=== PATIENT | male | born 1935 | race Caucasian/White ===

== ENCOUNTER 2017-06-29 18:45 | Inpatient (IN) | payer OTHER, MEDICARE ==
[~2017-06-29] VITALS: Ht 167.6 cm; Wt 63.6 kg
--- NOTE | ~2017-06-29 | H ---
[facility] [place] [address] HISTORY AND PHYSICAL Name: MARLON SABA JR Room #: 419-P ADM IN M.R.#: [id number] Admission: 06/29/17 Attend Phys: Javier Persaud Discharge: Date of : 31 Report #: [id number] THIS REPORT FOR: //name// CC: Javier James DATE OF SERVICE: 06/29/2017 ATTENDING PHYSICIAN: Yogesh Bird M.D. PRIMARY CARE PHYSICIAN: Osvaldo James D.O. CHIEF COMPLAINT: Altered mental status. HISTORY OF PRESENT ILLNESS: The patient is an 82-year-old male who lives at a fdc outside of [place], [place]. Apparently, he recently had a UTI and had been on Macrobid since 06/24/2017. His daughter has not had noticed some recent changes in his behavior, where he was acting mean. Apparently, he has some underlying vascular dementia, but he is normally alert with minimal confusion. He has been having increasing weakness as well as some spells in which he goes into a blank stare and is unable to respond for a brief period of time, sometimes his speech has seemed garbled during these episodes. He does not have a history of seizures, it was reported that he had a fever up to 102 at the facility. He initially was evaluated at [facility] in [place] and it was decided that he should transfer to [facility] where he can see Neurology. The patient arrived in no acute distress. He is able to answer most questions, but he is mildly confused. He is pleasant and cooperative for the most part although he is refusing to have a straight catheterization to obtain another urine specimen. He is denying any headache or neck pain, denies chest pain or abdominal pain. He does have a history of strokes and TIAs and has been on Coumadin. PAST MEDICAL HISTORY: Chronic atrial fibrillation, carotid stenosis, hypertension, hypothyroidism, coronary artery disease with prior [place], CVA and TIAs, bladder cancer, and vascular dementia. PAST SURGICAL HISTORY: Bilateral carotid endarterectomy, left hip replacement, left ankle replacement, cardiac stent placement, bladder surgery x 2. ALLERGIES: SULFA, UNKNOWN REACTION AND CHRISTIANO INHIBITORS ANGIOEDEMA. HOME MEDICATIONS: Macrobid 100 mg p.o. daily, this was just started on 06/24/2017, Flomax 0.4 mg p.o. daily, Coumadin 3 mg on Tuesday, , Tuesday, Tuesday and Coumadin 4 mg Tuesday, Tuesday, Tuesday and lovastatin 10 mg at bedtime, metoprolol 12.5 mg b.i.d., Tylenol 650 mg p.o. p.r.n., calcium with vitamin D 1 tab daily, guaifenesin 100 mg daily, artificial tears, Protonix [address] [address] HISTORY AND PHYSICAL Name: MARLON SABA Room #: 419-P [facility] IN M.R.#: [id number] Admission: 06/29/17 Attend Phys: Javier Persaud Discharge: Date of : 31 Report #: [id number] 40 mg daily, levothyroxine 0.075 mg daily and multivitamin daily. SOCIAL HISTORY: According to old records, the patient is an ex-smoker, having quit smoking in 1989 after smoking 1 pack per day for 10-12 years, no history of alcohol or drug use. He actually lives with his at a fdc facility in the same room. At his baseline, he is nonambulatory and wheelchair bound. CODE STATUS: DNR. FAMILY HISTORY: Significant for strokes, diabetes, and cancer. REVIEW OF SYSTEMS: According to the fdc records, he is incontinent of urine regularly. No reports of any recent bleeding. The patient denies any diabetes. All other 12-point review of systems was reviewed with the patient, otherwise negative unless stated in the HPI. PHYSICAL EXAMINATION: GENERAL: The patient is an alert male in no acute distress. VITAL SIGNS: Temperature is are 36.9, heart rate 81, respirations 18, blood pressure 122/66, oxygen 96% on room air. HEENT: PERRLA. Sclerae is nonicteric. Oral mucosa is pink and moist. NECK: No JVD noted. CARDIAC: Heart rate is irregular, but no murmurs, rubs or gallops. RESPIRATORY: Breath sounds are clear bilaterally. No wheezing or rhonchi. Breathing is nonlabored. ABDOMEN: Soft, nontender, nondistended with positive bowel sounds. VASCULAR: Trace bilateral lower extremity edema. Pedal pulses are 2+. NEUROLOGIC: The patient is alert to self only. He thought he was in a motel, but he was able to state he was in [place]. He was unable to tell me the current hospital, current month or current year. He will follow commands. He is able to move all extremities equally. No focal neuro deficits. LABORATORY DATA AND DIAGNOSTICS: WBC 8.6, hemoglobin 12.9, platelets 220. Sodium 129, potassium 4.1, BUN 26, creatinine 0.9, glucose 103. INR 3.6. Bilirubin, AST and ALT are within normal limits. Alkaline phosphatase 205. CK levels 77. Lactate 1.8. Troponins negative. UA showed moderate blood, small leukocyte esterase, 6-14 WBCs, EKG shows atrial fibrillation, rate 56. Chest x-ray showed mild bronchitis versus some mild pulmonary vascular congestion. CT of the head showed no acute findings. There was sxzz-ol-plakbnjg cerebellar atrophy. There was some chronic small vessel ischemic disease changes and some bilateral maxillary and ethmoid sinus disease. ASSESSMENT AND PLAN: 1. Altered mental status. These episodes that are being described are concerning for possible seizures. He does not have a history of seizure disorder, but has had multiple strokes. He also has underlying atrial [facility] [address] [place] [address] HISTORY AND PHYSICAL Name: MARLON SABA Room #: 419-P [facility] IN ..#: [id number] Admission: 06/29/17 Attend Phys: Javier Persaud Discharge: Date of : 31 Report #: [id number] fibrillation and is already on anticoagulation. We will check an MRI of the brain in the morning as well as an EEG and to consult Neurology and this may also be due to underlying urinary tract infection. We will try to repeat urinalysis and in the meantime continue Rocephin. 2. Urinary tract infection. The patient is refusing to give us another urine specimen per the straight cath. His urinalysis from outlying facility may have been contaminated. We will continue with Rocephin daily and follow urine culture if we are able to obtain it. 3. Hypertension. Blood pressure is stable, continue home medications. 4. Chronic atrial fibrillation. The patient is currently rate controlled. We will continue with metoprolol. He is anticoagulated with Coumadin and INR is supratherapeutic at 3.6. Today's dose was held. We will repeat an INR in the morning and then resume Coumadin at dosing as previous. 5. Hypothyroidism. Continue Synthroid. 6. Hyponatremia. We will give some gentle normal saline and repeat labs in the morning. His BUN is mildly elevated. 7. Code status: The patient is a do not resuscitate. 8. Deep venous thrombosis prophylaxis. Add sequential compression devices. Continue with Coumadin. We will continue to follow the patient closely throughout the hospitalization and make changes based on clinical status. <ELECTRONICALLY SIGNED> By: ALBERT Zabala 06/30/17 [id number] ALBERT Zabala /nt
--- NOTE | ~2017-06-29 | EEG ---
[facility] [employer] [place] [address] ELECTROENCEPHALOGRAM Name: MARLON SABA JR Room #: 419-P [facility] IN M.R.#: [id number] Admission: 06/29/17 Attend Phys: Javier Brennan Discharge: 07/01/17 Date of : 31 Report #: [id number] THIS REPORT FOR: //name// CC: Javier Persaud Osvaldo James DATE OF SERVICE: 06/30/2017 The patient's EEG was done by placing the electrodes by standard 10/20 system of electrode placement. Both referential and sequential montages were used for recording. Background activity appeared to be about 10 Hz and 30 microvolts. The patient goes to sleep that is associated with bilaterally symmetrical sleep spindle and vertex sharp waves. Photic stimulation was unremarkable. Throughout the record, no active epileptiform activity was noticed. IMPRESSION: This patient's EEG is unremarkable. Thank you very much for this referral. <ELECTRONICALLY SIGNED> By: Gilberto Mccabe MD 07/04/17 1714 [id number] Gilberto Mccabe MD /nt
[~2017-06-29 18:45] MED LIST: ASPIRIN EC81 M1 PO; ASPIRIN81 M2 PO; COUMADIN 4 MG TA4 M1; COUMADIN 4 MG TA4 M1 PO; ENOXAPARIN40 MG/0.1 IM; LISINOPRIL5 MG PO; LOPRESSOR 12.12.5 MG; LOVASTAT10 PO; LOVASTATIN 20 M20 MG; MYRBETRIQ50 MG; OCUVITE EXTRA1 EACH PO; PRESERVISION A1 EAC2; SYNTHROID75 MCG PO; TAMSULOSIN HCL0.4 MG PO; TOPROL XL25 MG
[2017-06-29 20:30] VITALS: BP 122/66
[2017-06-29] MEDS ORDERED: PROTONIX40 M2 PO (22:04)
[2017-06-29] MEDS ORDERED: FLOMAX0.4 MG PO (22:05)
[2017-06-29] MEDS ORDERED: ROBITUSSIN100 MG/53 PO (22:07)
[2017-06-29] MEDS ORDERED: TYLENOL325 MG PO (22:08)
[2017-06-29] MEDS ORDERED: METROGEL60 GM TOP (22:11)
[2017-06-29] MEDS ORDERED: CERAVE453 GM TOP (22:12)
[2017-06-29] MEDS ORDERED: MULTI VITAMIN1 EACH PO (22:13)
[2017-06-29] MEDS ORDERED: CALCIUM 500 +1 EAC5 PO (22:14)
[2017-06-29] MEDS ORDERED: COUMADIN 3 MG TA3 M1 PO (22:15)
[2017-06-29] MEDS ORDERED: COUMADIN 4 MG TA4 M1 PO (22:18)
[2017-06-29] MEDS ORDERED: ARTIFICIAL TEAR15 M9 OPHTHALMIC (22:19)
[2017-06-29] MEDS ORDERED: MACROBID 100 M100 M2 PO (22:20)
[2017-06-30 03:57] LABS: HEMATOCRIT 36.6 % (42.0-52.0); HEMOGLOBIN 12.3 gm/dL (14.0-18.0); MCH 28.6 pg (26.0-34.0); MCHC 33.7 g/dL (28.0-37.0); MCV 85.1 fL (80.0-100.0); RBC 4.31 mil/uL (4.50-6.00); RDW 16.1 % (10.5-14.5); WBC 7.6 thou/uL (4.0-11.0)
[2017-06-30 04:10] VITALS: BP 144/71
[2017-06-30 04:10] LABS: INR 2.9; PROTIME 29.3 Seconds (9.3-11.4)
[2017-06-30 04:41] LABS: CALCIUM 8.6 mg/dL (8.5-10.1); POTASSIUM 3.8 mmol/L (3.5-5.1)
[2017-06-30 06:47] LABS: URINE BILIRUBIN NEGATIVE (Negative); URINE BLOOD 3+ (Negative); URINE COLOR YELLOW; URINE GLUCOSE-RANDOM* NEGATIVE (Negative); URINE KETONES NEGATIVE (Negative); URINE PROTEIN (DIPSTICK) NEGATIVE (Negative); URINE SPECIFIC GRAVITY <= 1.005 (1.003-1.035); URINE UROBILINOGEN 0.2 E.U./dl (0.2-1.0)
[2017-06-30 06:52] LABS: URINE LEUKOCYTES-REFLEX 1+ (Negative)
[2017-06-30 06:53] LABS: SQUAMOUS 0-3 Few /LPF (0-3)
[2017-06-30 06:54] LABS: URINE RBC 3-10 Few /HPF (0-2); URINE WBC-REFLEX 6-15 Few /HPF (0-5)
[2017-06-30 06:55] LABS: CASTS None Seen /LPF (None Seen); CRYSTALS None Seen /LPF (None Seen)
[2017-06-30 07:29] VITALS: BP 134/72
[2017-06-30 15:14] VITALS: BP 129/64
[2017-07-01 00:05] VITALS: BP 129/64
[2017-07-01 07:26] VITALS: BP 154/69
[2017-07-01 07:44] LABS: PROTIME 20.7 Seconds (9.3-11.4)
[2017-07-01] MEDS ORDERED: ASPIR 8181 MG PO (10:10)
[2017-07-01] MEDS ORDERED: CEFUROXIME250 MG PO (10:10)
== END 2017-07-01 15:27 | DRG 65 ==
LOC: 4E 18:45
PROVIDERS: Nurse Practitioner Acute Care
DX: I63.10 Cerebral infarction due to embolism of unspecified precerebral artery (principal); N39.0 Urinary tract infection, site not specified; E87.1 Hypo-osmolality and hyponatremia; I48.2 Chronic atrial fibrillation; I10 Essential (primary) hypertension; E03.9 Hypothyroidism, unspecified; I25.10 Atherosclerotic heart disease of native coronary artery without angina pectoris; F01.50 Vascular dementia, unspecified severity, without behavioral disturbance, psychotic disturbance, mood disturbance, and anxiety; Z96.642 Presence of left artificial hip joint; Z96.651 Presence of right artificial knee joint; Z66 Do not resuscitate; Z87.891 Personal history of nicotine dependence; Z80.9 Family history of malignant neoplasm, unspecified; Z83.3 Family history of diabetes mellitus; Z82.3 Family history of stroke; Z95.5 Presence of coronary angioplasty implant and graft; Z88.2 Allergy status to sulfonamides; I25.2 Old myocardial infarction; Z85.51 Personal history of malignant neoplasm of bladder; Z86.73 Personal history of transient ischemic attack (TIA), and cerebral infarction without residual deficits
CPT/HCPCS: 10783